=== PATIENT | female | born 1965 | race Caucasian/White ===

== ENCOUNTER 2016-05-28 06:14 | Day surgery (SDC) | payer OTHER ==
--- NOTE | 2016-05-25 19:21 | HISTORY AND PHYSICAL ---
ADMITTED: 05/28/2016 HISTORY OF PRESENT ILLNESS: The patient is a 51-year-old female with the chief complaint of a painful left foot and heel. Says it has been ongoing for several months, possibly even years, began in 2014. States she was getting corticosteroid injections by a provider in 2014 and as well again in 2016. She describes first step out of bed pain, as well as pain in the back of the heel where the Achilles tendon attaches. MEDICAL/SURGICAL HISTORY: Past medical history: Includes type 2 diabetic, hypertension, elevated cholesterol. Surgical history: Tonsils, appendectomy, hysterectomy, and 3 C-sections. PCP: Dr. Schuster. MEDICATIONS: 1. Atorvastatin 10 mg tablet daily. 2. Cetirizine 10 mg 1 p.o. daily. 3. Vitamin D3 5000 international units daily. 4. Glipizide ER 5 mg daily. 5. Lantus SoloSTAR 100 units per mL 3 mL injection daily. 6. Lipitor 10 mg daily. 7. Lisinopril 20 mg daily. 8. Metformin 1000 mg b.i.d. 9. Methocarbamol 500 mg 1 by mouth daily. 10. Mucinex D 60/600 1 by mouth daily. 11. Premarin 0.3 mg tablet 1 by mouth daily. 12. Naproxen 375 mg tablet 1 by mouth b.i.d. ALLERGIES: 1. REPORTS NO KNOWN DRUG OR FOOD ALLERGIES. SOCIAL HISTORY: She is . Does not smoke, does not drink. FAMILY HISTORY: Arthritis, diabetes, hypertension. REVIEW OF SYSTEMS: Ten-point review of systems positive for diabetes. PHYSICAL EXAMINATION: GENERAL: The patient is alert, oriented x3. HEENT: PERRLA. Normocephalic. HEART: Regular rate and rhythm. Regular S1 and S2. No murmurs or gallops. LUNGS: Respiration clear to auscultation. No wheezing, rhonchi, or rales. ABDOMEN: Soft, tender, nondistended. No palpable masses. Normal tones. EXTREMITIES: Lower extremity/Vascular: Dorsalis pedis, posterior tibial pulses are +1/4. Skin texture and turgor within normal limits. Orthopedically, there is noted pain along the medial and central plantar fascial band to the left heel proximally. Also, tenderness along the course of the tendo-Achilles. NEUROLOGIC: Deep tendon reflexes, epicritic sensations are intact. Normal sensations in dermatomes L4, L5, S1 and 2. Muscle strength, dorsiflexion, plantarflexion, inversion and eversion are intact. LAB/IMAGING: Ultrasound imaging has revealed isolated area, hypoechoic areas in the medial and central plantar fascial bands proximally. Second OrthoScan weightbearing platform in office revealed a hypertrophy of the posterior superior os calcis and an inferior exostosis at the plantar fascial insertion. IMPRESSION: 1. Chronic plantar fasciitis. 2. Erika deformity. 3. Pes calcaneal valgus. PLAN: The patient has exhausted conservative care and has opted for surgical procedure consisting of a Erika resection, a heel spur resection, a [place] and a PRP. There are no contraindications to surgery at this time. Surgery is scheduled on outpatient basis at [facility] on Saturday05/28/2016.
[~2016-05-28] VITALS: Ht 157.5 cm; Wt 98.6 kg
[~2016-05-28 06:14] MED LIST: HYCET1 ML PO; LIPITOR10 MG PO; LIPITOR40 MG PO; LISINOPRIL/HYDR1 TA2; METFORMIN HCL500 MG PO; NAPROXEN375 MG PO; PREMARIN0.3 MG PO; PRINIVIL10 MG PO; ZYRTEC ALLERGY10 MG
--- NOTE | 2016-05-28 07:31 | NUR ---
PT ADMITTED FOR SURGERY ON LEFT FOOT. SHE CONFIRMED HER NAME, , PLANNED PROCEDURE, SITE AND SIDE, MEDICATIONS AND ALLERGIES, NPO STATUS AND MARKED HER LEFT FOOT. IV ACCESS ESTABLISHED IN RIGHT HAND AFTER ONE UNSUCCESSFUL ATTEMPT IN RIGHT HAND. PRE-OP TEACHING COMPLETED AND QUESTIONS ANSWERED.
[2016-05-28] MEDS ORDERED: ZOFRAN4 MG PO (09:08)
[2016-05-28] MEDS ORDERED: PERCOCET1 TA4 PO (09:08)
--- NOTE | 2016-05-28 09:10 | Provider's Discharge Care Plan ---
Problem, Goal, Plan Problem List 1. Diabetes mellitus Goals: Improve function Instructions: Follow up as directed
--- NOTE | 2016-05-28 09:10 | Provider's Discharge Care Plan ---
Problem, Goal, Plan Problem List 1. Diabetes mellitus Goals: Improve function Instructions: Follow up as directed
--- NOTE | 2016-05-28 09:55 | NUR ---
PT IS AWAKE AND ALERT PRIOR D/C FROM PACU. PT DENIES NAUSEA. PT STATES HER LEFT FOOT PAIN IS 2/10 AFTER FENTANYL 50MCG IV. LEFT LEG IS ELEVATED ON TWO PILLOWS. MD TALKED TO PT IN PACU. REPORT GIVEN TO BHAVIK.
--- NOTE | 2016-05-28 09:58 | NUR ---
PT RECEIVED BACK TO SCU FROM PACU. REPORTS PAIN 4/10 AND DENIES NAUSEA. CHIEF COMPLAINT IS DRY, SORE THROAT. TAKING ICE CHIPS PO WITHOUT PROBLEMS. POST-OP SHOE ON LEFT FOOT AND LEFT LEG ELEVATED ON PILLOWS. NO ICE TO LEFT LEG.
[2016-05-28 10:49] VITALS: BP 126/70
--- NOTE | 2016-05-28 12:34 | NUR ---
PT ATE LIGHT LUNCH AND TOLERATED WELL. MEDICATED FOR INCREASING PAIN WITH ACTIVITY. DISCHARGE INSTRUCTIONS REVIEWED WITH PT AND HER , QUESTIONS ANSWERED. PRESCRIPTIONS GIVEN TO PT. PT DISCHARGED TO HOME, BELONGINGS HOME WITH PT. PT TAKEN TO EXIT VIA WC WITH LEFT LEG ELEVATED. PAIN LEVEL 4/10 AND NO NAUSEA AT DISCHARGE.
--- NOTE | 2016-05-28 14:09 | OPERATIVE REPORT ---
DATE OF SURGERY: 05/28/2016 SURGEON: Mukesh Perez DPM PREOPERATIVE DIAGNOSES: 1. 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 Exostectomy, inferior heel. 2. Erika's resection. 3. Erhard fasciotomy. HEMOSTASIS: Achieved by mid ankle tourniquet inflated to 250 mmHg pressure. TOURNIQUET TIME: Total tourniquet time 57 minutes. MATERIALS: 3-0 Polysorb, 4-0 Surgipro. INJECTABLES: Injected 20 mL of 0.5% bupivacaine plain. COMPLICATIONS: None. CONDITION: The patient tolerated anesthesia and procedure well. INDICATIONS: The patient is a 51-year-old female with a chief complaint of a painful left heel. We have exhausted conservative care. She has had numerous corticosteroid injections carried out by another provider. They have not worked. She has used orthoses with no success. There are no contraindications to surgery at this time. SURGICAL TECHNIQUE: The patient was brought to the operating room and placed on the table in a supine position. At this time, general anesthetic was administered, pneumatic tourniquet was then placed above the left ankle. The left lower extremity was then prepped and draped in normal sterile fashion. An intraoperative pause was carried out for positive identification, proper limb, and consent form verified and confirmed. An Esmarch bandage was then utilized to exsanguinate the limb, the tourniquet was then inflated. Attention was then directed to procedure number one. Resection of an exostectomy inferior left heel. At this time, a vertical incision was made just proximal to the abductor hallucis muscle belly deepened by sharp and blunt dissection. With the aid of fluoroscopy, the hypertrophied exostosis of the inferior site of the os calcis was removed. A power rasp was then utilized to rasp down the bony projection in toto. The area was flushed. The capsule and periosteum were then reapproximated with 3-0 Polysorb and skin edges were closed with 4-0 Surgipro. Attention was directed to procedure number 2. Erika resection. At this time attention was directed laterally where a curvilinear incision was made anterior to the tendo-Achilles, going from distal to proximal midway through the os calcis. It was deepened by sharp and blunt dissection. A periosteal elevator was utilized to protect the periosteum off the posterosuperior process of the os calcis Erika deformity. A sagittal saw was utilized to resect laterally about midway and then an osteotome and mallet were then utilized to remove the remaining section. It was then contoured to a smooth edge with a power rasp. The area was copiously lavaged and flushed. The capsule and periosteum were reapproximated with 3-0 Polysorb, and the skin edges were then reapproximated in a running fashion with 4-0 Surgipro. Attention was then directed to procedure number 3. Erhard fasciotomy. At this time, attention was directed to the plantar aspect of the heel where a grid was laid out from medial to lateral at 2 mm increments. It was percutaneously poked with 0.045 K-wire. Then a preset radial ablation wand was then placed at #4 under a saline drip and ablation of the fascia was carried out. The patient tolerated all procedures well. Local anesthetic was administered. There were no complications about the procedure. The patient tolerated anesthesia and procedure well and left the room with vital signs stable. While in recovery, written instructions for weightbearing to tolerance with a fracture postoperative shoe and/or boot. Prognosis is guarded. She will be discharged home in stable condition.
== END 2016-05-28 12:38 | disposition home or self-care (01) ==
LOC: OR SRH 06:14 → SCU SRH 06:18 → OR SRH 07:30
PROVIDERS: Podiatrist
PROC: 0QBM0ZZ Excision of Left Tarsal, Open Approach (ICD-10-PCS; principal; 2016-05-28 07:30)
PROC: 0J8R3ZZ Division of Left Foot Subcutaneous Tissue and Fascia, Percutaneous Approach (ICD-10-PCS; principal; 2016-05-28 07:30)
DX: M72.2 Plantar fascial fibromatosis (principal); M92.62 Juvenile osteochondrosis of tarsus, left ankle; M77.32 Calcaneal spur, left foot; I10 Essential (primary) hypertension; E11.9 Type 2 diabetes mellitus without complications; Z79.4 Long term (current) use of insulin
CPT/HCPCS: 29229; 29240; 50004; 60001; 70002; 80071; 80212; 80461; 80575; 83169; 83206; 83414; 83773; 83860; 84038; 84522; 90074; 90100; 95059; 98428